=== PATIENT | female | born 1980 | race Caucasian/White ===

== ENCOUNTER 2016-06-05 01:41 | Inpatient (IN) | payer OTHER ==
[2016-06-02 10:39] LABS: Hematocrit 36 % (35-47); Hemoglobin 12.2 g/dl (12.0-16.0); Mean Corpuscular HGB Conc 34 g/dl (31-36); Mean Corpuscular Hemoglobin 30 pg (27-31); Mean Corpuscular Volume 88 fL (80-97); Mean Platelet Volume 11 um3 (7.4-10.4); Red Blood Count 4.11 10^6/ul (4.0-5.4); Red Cell Distribution Width 13 % (10.5-15); White Blood Count 8.3 10^3/ul (3.5-10.8)
[2016-06-05] MEDS ORDERED: Nalbuphine* 20 MG/ML 1 ML VIAL IV PRN ×2 (03:03→22:23)
[2016-06-05] MEDS ORDERED: Promethazine INJ(RESTRICTED)* 25 MG/ML 1 ML VIAL IV PRN (03:04)
[2016-06-05 04:10] LABS: Hematocrit 33 % (35-47); Hemoglobin 11.3 g/dl (12.0-16.0); Mean Corpuscular HGB Conc 34 g/dl (31-36); Mean Corpuscular Hemoglobin 30 pg (27-31); Mean Corpuscular Volume 87 fL (80-97); Mean Platelet Volume 10 um3 (7.4-10.4); Red Blood Count 3.81 10^6/ul (4.0-5.4); Red Cell Distribution Width 13 % (10.5-15); White Blood Count 10.8 10^3/ul (3.5-10.8)
[2016-06-05] MEDS ORDERED: OBEPIDURAL* 250 ML ONE (08:38)
[2016-06-05] MEDS ORDERED: HYDROmorphone* 1 MG/ML 1 ML SYR ONE ×3 (08:39→15:23)
[2016-06-05] MEDS ORDERED: fentaNYL* 50 MCG/ML 2 ML VIAL (100 MCG VIAL) ONE ×2 (08:39→15:23)
[2016-06-05] MEDS: Phenylephrine IV* 40 MCG/ML 10 ML SYRINGE IV PUSH PRN ×2 (09:09→09:24)
[2016-06-05] MEDS ORDERED: Sodium Citrate/Citric Acid* 15 ML UDC PO PRN (09:18)
[2016-06-05] MEDS ORDERED: EPHEDrine (Pressors)* 50 MG/ML VIAL IV PUSH PRN (09:18)
[2016-06-05] MEDS ORDERED: Famotidine TAB* 20 MG PO PRN (09:18)
[2016-06-05] MEDS ORDERED: OBEPIDURAL* 250 ML EPIDURAL SCH (10:00)
[2016-06-05] MEDS ORDERED: Oxytocin in LR* 20 UNITS/1,000 ML BAG IVPB SCH ×2 (12:00→23:45)
[2016-06-05] MEDS ORDERED: Bupivacaine 0.25% SDV* 30 ML ONE (12:24)
[2016-06-05] MEDS ORDERED: Lidocaine 1% MPF* 2 ML VIAL ONE (18:08)
[2016-06-05] MEDS ORDERED: ceFOXitin 2 GM IVPREMIX* 2 GM/50 ML BAG ONE (21:17)
[2016-06-05] MEDS ORDERED: ceFOXitin 2 GM IVPREMIX* 2 GM/50 ML BAG IVPB ONE (21:25)
[2016-06-05] MEDS ORDERED: Sodium Citrate/Citric Acid* 15 ML UDC PO ONE (21:26)
[2016-06-05] MEDS ORDERED: Morphine PF AMP (0.5MG/ML)* 5 MG/10 ML AMP ONE (21:37)
[2016-06-05] MEDS ORDERED: OXYTOCIN* 10 UNITS/ML 1 ML VIAL ONE (22:09)
[2016-06-05] MEDS ORDERED: Acetaminophen IV 1GM/100ML * 100 ML IVPB ONE (22:21)
[2016-06-05] MEDS ORDERED: oxyCODONE/Acetamin 5/325 MG* TAB PO PRN ×2 (22:21→22:23)
[2016-06-05] MEDS ORDERED: DiMENhydriNATE IV* 50 MG/ML VIAL IV PUSH PRN (22:21)
[2016-06-05] MEDS ORDERED: HYDROmorphone* 1 MG/ML 1 ML SYR IV PRN (22:21)
[2016-06-05] MEDS ORDERED: Ketorolac INJ* 30 MG/ML 1 ML VIAL ONE (22:22)
[2016-06-05] MEDS ORDERED: Ondansetron INJ* 2 MG/ML VIAL IV PRN (22:23)
[2016-06-05] MEDS ORDERED: Naloxone* 0.4 MG/ML 1 ML VIAL IV PRN (22:23)
[2016-06-05] MEDS ORDERED: Ondansetron INJ* 2 MG/ML VIAL ONE (22:34)
[2016-06-05] MEDS ORDERED: EPHEDrine (Pressors)* 50 MG/ML VIAL ONE (22:34)
[2016-06-05] MEDS ORDERED: Acetaminophen TAB* 325 MG PO PRN (23:29)
[2016-06-05] MEDS ORDERED: Dibucaine 1% 28.35 GM TUBE PR PRN (23:29)
[2016-06-05] MEDS ORDERED: Witch Hazel PAD* JAR TOPICAL PRN (23:29)
[2016-06-05] MEDS ORDERED: Glycerin ADULT SUPP PR PRN (23:29)
[2016-06-06] MEDS: Ibuprofen TAB* 600 MG PO SCH ×5 (06:32→19:11)
[2016-06-06] MEDS: oxyCODONE/Acetamin 5/325 MG* TAB PO PRN ×4 (06:33→18:12)
[2016-06-06 06:37] LABS: Hematocrit 27 % (35-47); Hemoglobin 8.8 g/dl (12.0-16.0); Mean Corpuscular HGB Conc 33 g/dl (31-36); Mean Corpuscular Hemoglobin 30 pg (27-31); Mean Corpuscular Volume 89 fL (80-97); Mean Platelet Volume 10 um3 (7.4-10.4); Red Cell Distribution Width 13 % (10.5-15); White Blood Count 13.7 10^3/ul (3.5-10.8)
[2016-06-06] MEDS: Ferrous Gluconate TAB* 324 MG TAB PO SCH ×2 (08:55→21:26)
[2016-06-06] MEDS: Docusate CAP* 100 MG PO SCH ×3 (08:57→21:25)
--- NOTE | 2016-06-06 10:43 | OP ---
AMENDED REPORT TO CORRECT DATE OF SURGERY - ESIGNED BEFORE ADJUSTMENT DATE OF OPERATION: 06/06/16 - ROOM #[id number] DATE OF : 80 SURGEON: Kelsi Fermin MD SOFTWARE TOOLS DEVELOPER: Dr. Fitzgerald. ANESTHESIOLOGIST: At the start of the surgery was Dr. Bains who placed the spinal, and then Dr. Avery took over. ANESTHESIA: Spinal. PRE-OP DIAGNOSIS: Full-term intrauterine , arrest of descent at fully dilated after pushing approximately 2 hours and 30 minutes. POST-OP DIAGNOSIS: Full-term intrauterine , arrest of descent at fully dilated after pushing approximately 2 hours and 30 minutes. OPERATIVE PROCEDURE: Primary low flap transverse section via Pfannenstiel. Uterus closed in 2 layers. ESTIMATED BLOOD LOSS: 700 cc. URINE OUTPUT: 300 cc clear urine intraoperatively. FINDINGS: Viable female infant in the vertex presentation. Apgars were 10 and 10. Weight was 8 pounds 13 ounces. Normal-appearing uterus, normal-appearing ovaries bilaterally. The right fallopian tube is surgically absent. The left fallopian tube appeared normal. COMPLICATIONS: None. COUNTS: Sponge, lap, and needle count were correct x2 and the patient was brought to recovery room, awake and in stable condition. The patient had sequential compression devices throughout the surgery and will have them in the recovery room and until ambulating regularly. DESCRIPTION OF PROCEDURE: The patient was brought to the operating room. A Bergman catheter had been placed under sterile conditions when she received labor epidural. Spinal anesthesia was provided by Dr. Bains. The spinal was tested and found to be adequate. The patient was prepped and draped in the usual sterile fashion in the dorsal supine position with a leftward tilt. Time-out was performed. Once again, the spinal was tested with Marshall clamps and found to be adequate. A Pfannenstiel skin incision was made with the scalpel and carried down to the underlying layer of fascia. The fascia was incised in the midline and the peritoneal incision was extended laterally using the Carranza scissors. The fascia was grasped with Annie clamps and the rectus muscle was dissected using sharp and blunt dissection. The rectus muscle was found to be in the midline. The peritoneum was identified, tented up and entered. The peritoneal incision was extended superiorly and inferiorly with good visualization of the bladder. The bladder blade was inserted. The vesicouterine peritoneum was identified and a bladder flap was created. The bladder blade was reinserted. A low flap transverse incision was made on the uterus to the level of the membranes and the uterine incision was extended bluntly. The infant was delivered from the vertex presentation. The labor nurse had to push the vertex vaginally. The infant was delivered atraumatically from the vertex presentation. The baby was vigorous. The cord was milked, then clamped and cut, and the infant was handed off to the waiting occupational therapy program director, Dr. Gutierres. The placenta was delivered. The uterus was exteriorized. The uterus was cleared of all clots and debris and the uterine incision was repaired using 0 Vicryl in a running lock fashion. A second layer of the same suture was used to imbricate and obtain excellent hemostasis. There was what appeared to be hematoma on the serosal surface near the right angle. This never expanded and remained stable in size. It was not tense. The ovaries and fallopian tubes were examined as noted in the findings. The right fallopian tube is surgically absent. There was a small 1 cm fibroid on the posterior surface of the fundus. The uterus was returned to the pelvis. The gutters were cleared of all clots and debris and once again, the uterine incision was examined and found to be hemostatic. The peritoneum was closed using 3-0 Vicryl. The subfascial layer was examined and found to be hemostatic. The fascia was closed using 0 Vicryl. The subcutaneous tissue was irrigated. Any bleeders were cauterized with the Bovie. Three interrupted sutures of 3-0 Vicryl were placed in the subcu to help close the space. The skin was closed in a subcuticular fashion with 4-0 Monocryl. Steri-Strips were applied. A pressure dressing was applied, and the patient was brought to recovery room, awake and in stable condition, Bergman catheter draining clear urine, sequential compression devices bilaterally. [id number]/[facility] #: [id number] BREANNE
[2016-06-06] MEDS: Simethicone CHEW TAB* 80 MG PO SCH ×3 (12:49→21:26)
[2016-06-07] MEDS: oxyCODONE/Acetamin 5/325 MG* TAB PO PRN ×6 (00:24→21:53)
[2016-06-07] MEDS: Ibuprofen TAB* 600 MG PO PRN ×4 (01:37→21:53)
[2016-06-07] MEDS: Simethicone CHEW TAB* 80 MG PO SCH ×4 (09:18→20:38)
[2016-06-07] MEDS: Docusate CAP* 100 MG PO SCH ×3 (09:18→20:39)
[2016-06-07] MEDS: Ferrous Gluconate TAB* 324 MG TAB PO SCH ×2 (09:18→20:39)
--- NOTE | 2016-06-07 15:39 | PTEDU ---
Patient Name: BECKIE BILL BECKIE BILL selected video: Never Ever Shake a Baby to view on 06/07/2016 at 3:38:22 PM from [id number]
--- NOTE | 2016-06-07 15:48 | PTEDU ---
Patient Name: BECKIE BILL BECKIE BILL selected video: BBOB: Bonding Through Infant Massage to view on 06/07/2016 at 3:47: 49 PM [id number]
[2016-06-07] MEDS: Ibuprofen TAB* 600 MG PO SCH (19:33)
[2016-06-08] MEDS: oxyCODONE/Acetamin 5/325 MG* TAB PO PRN ×2 (03:39→07:48)
[2016-06-08] MEDS: Ibuprofen TAB* 600 MG PO PRN (06:29)
[2016-06-08] MEDS: Simethicone CHEW TAB* 80 MG PO SCH (07:45)
[2016-06-08] MEDS: Docusate CAP* 100 MG PO SCH (07:48)
[2016-06-08] MEDS: Ferrous Gluconate TAB* 324 MG TAB PO SCH (07:48)
[2016-06-08 07:49] VITALS: BP 104/60
== END 2016-06-08 10:10 | disposition home or self-care (01) | DRG 766 ==
LOC: MCHOBOUT 01:41 → MCHOB 08:14
PROVIDERS: ADMIT Obstetrics & Gynecology; ATTEND Obstetrics & Gynecology
PROC: 10907ZC Drainage of Amniotic Fluid, Therapeutic from Products of Conception, Via Natural or Artificial Opening (ICD-10-PCS; 2016-06-05)
PROC: 10D00Z1 Extraction of Products of Conception, Low, Open Approach (ICD-10-PCS; principal; 2016-06-05 21:41)
DX: O62.1 Secondary uterine inertia (principal); D25.9 Leiomyoma of uterus, unspecified; O48.0 Post-term pregnancy; O34.13 Maternal care for benign tumor of corpus uteri, third trimester; O09.513 Supervision of elderly primigravida, third trimester; O90.81 Anemia of the puerperium; D64.9 Anemia, unspecified; Z3A.40 40 weeks gestation of pregnancy; Z37.0 Single live birth
CPT/HCPCS: 36415; 85025; 85027; 86850; 86900; 86901; A9270-GY; J0694; J1170; J1885; J2300; J2405; J2550; J2590; J3010

== ENCOUNTER 2018-04-26 07:25 | Day surgery (SDC) | payer OTHER ==
[~2018-04-26 07:25] MED LIST: Buffered Lidocaine 1% SYRIN* 1 ML/SYRINGE INTRADERM ONE; Famotidine IV* 10 MG/ML 2 ML (20 mg) IV ONE; Lactated Ringers 1000 ML Bag* 1,000 ML IV SCH
[2018-04-26] MEDS ORDERED: Famotidine IV* 10 MG/ML 2 ML (20 mg) ONE (07:55)
[2018-04-26] MEDS ORDERED: ceFAZolin 2 GM PREMIX in ORs 2 GM/50 ML BAG IVPB ONE (07:55)
[2018-04-26] MEDS ORDERED: Buffered Lidocaine 1% SYRIN* 1 ML/SYRINGE INTRADERM ONE (07:56)
[2018-04-26] MEDS ORDERED: Ondansetron INJ* 2 MG/ML VIAL ONE (08:13)
[2018-04-26] MEDS ORDERED: fentaNYL* 50 MCG/ML 2 ML VIAL (100 MCG VIAL) ONE (08:13)
[2018-04-26] MEDS ORDERED: Lidocaine 2% PF * 5 ML VIAL ONE (08:13)
[2018-04-26] MEDS ORDERED: KETAMINE HCL* 50 MG/ML 10 ML VIAL ONE (08:13)
[2018-04-26] MEDS ORDERED: Ketorolac INJ* 30 MG/ML 1 ML VIAL ONE (08:13)
[2018-04-26] MEDS ORDERED: Dexamethasone IV* 4 MG/ML 1 ML (4 MG) ONE (08:13)
[2018-04-26] MEDS ORDERED: Propofol* 10 MG/ML 20 ML BTL ONE ×3 (08:13→10:07)
[2018-04-26] MEDS ORDERED: Midazolam* 1 MG/ML 10 ML VIAL (10 MG) ONE (08:14)
[2018-04-26] MEDS ORDERED: Bupivacaine 0.5%* 50 ML VIAL ONE (09:20)
[2018-04-26] MEDS ORDERED: Lidocaine 1% INJ* 10 MG/ML 30 ML SDV ONE (09:20)
[2018-04-26] MEDS ORDERED: oxyCODONE/Acetamin 5/325 MG* TAB PO PRN (09:52)
[2018-04-26] MEDS ORDERED: Ondansetron INJ* 2 MG/ML VIAL IV PRN (09:52)
[2018-04-26] MEDS ORDERED: fentaNYL* 50 MCG/ML 2 ML VIAL (100 MCG VIAL) IV PRN (09:52)
[2018-04-26] MEDS ORDERED: Naloxone* 0.4 MG/ML 1 ML VIAL IV PRN (09:52)
[2018-04-26 12:12] VITALS: BP 113/71
--- NOTE | 2018-04-26 13:15 | OP ---
DATE OF OPERATION: 04/26/18 - [facility] DATE OF : 80 SURGEON: Kary Ferguson MD. PACKER SAUSAGE AND WIENER: Mitzy Pinto MD. ANESTHESIOLOGIST: Luis Andrews MD. ANESTHESIA: MAC. PRE-OP DIAGNOSIS: Right breast mass. POST-OP DIAGNOSIS: Right breast mass. OPERATIVE PROCEDURE: Right breast lumpectomy. INDICATIONS FOR PROCEDURE: Ms. 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 She gave informed consent for a right breast lumpectomy and she understood the risks, benefits, and alternatives of the procedure and she wished to proceed. SPECIMEN: Right breast mass. DESCRIPTION OF PROCEDURE: The patient was brought back to the operating room and placed on the operating table in the supine position. Venodyne boots were placed on the bilateral lower extremities for DVT prophylaxis. Antibiotics were administered prior to incision. The patient was undergoing a MAC anesthesia and the right breast was prepped and draped in normal sterile fashion. Prior to beginning the procedure, a time-out was performed verifying the patient's name, MR number, the laterality of the procedure which was the right side, and the procedure to be performed. The right breast mass was palpable at approximately 12 o'clock approximately 2 to 3 cm from the nipple. Local anesthesia with mixture of 1% lidocaine and 0.5% Marcaine was administered to the area where the incision was to be made. A curvilinear incision was made over the palpable mass and the skin was divided down to the subcutaneous tissue. A cone of breast tissue was then removed using electrocautery, which contained the mass which appeared to be encapsulated and discrete. It was removed in its entirety. Next, the specimen was carried off the table and sent to Pathology. The breast cavity was examined. Hemostasis was obtained after meticulous inspection. 1% lidocaine was used to infuse into the breast cavity for additional local anesthesia and then the subdermal layer was closed using interrupted 3-0 Vicryl sutures and the skin was closed using interrupted 4-0 Monocryl suture. Sterile dressing was placed and then the patient was woken up and she was taken to the PACU in stable condition. At the end of the case, all counts were correct and I was present during the entirety of the case. [id number]/[facility] #: [id number] BREANNE
== END 2018-04-26 12:00 | disposition home or self-care (01) ==
LOC: OR 07:25
PROVIDERS: ATTEND Surgery
DX: N63.10 Unspecified lump in the right breast, unspecified quadrant (principal)
CPT/HCPCS: 81025; 88307; J0690; J1100; J1885; J2250; J2405; J2704; J3010

== ENCOUNTER 2020-01-21 07:18 | Inpatient (IN) ==
[~2020-01-21 07:18] MED LIST changes: -Buffered Lidocaine 1% SYRIN* 1 ML/SYRINGE INTRADERM ONE; -Famotidine IV* 10 MG/ML 2 ML (20 mg) IV ONE; -Lactated Ringers 1000 ML Bag* 1,000 ML IV SCH; +ceFOXitin 2 GM IVPREMIX 2 GM/50 ML BAG IVPB ONE
[2020-01-21] MEDS ORDERED: Morphine PF AMP (0.5MG/ML) 5 MG/10 ML AMP ONE (08:28)
[2020-01-21] MEDS ORDERED: EPHEDrine (Pressors) 50 MG/ML VIAL ONE (08:28)
[2020-01-21] MEDS ORDERED: fentaNYL 100 mcg/2 ml 50 MCG/ML VIAL ONE (08:28)
[2020-01-21] MEDS ORDERED: Phenylephrine 40 mcg/mL 10mL (400mcg) SYRINGE ONE ×2 (08:56→08:59)
[2020-01-21] MEDS ORDERED: Ondansetron 4 mg VIAL 2 MG/ML 2 ml VIAL ONE (08:57)
[2020-01-21 09:04] LABS: Urine Benzodiazepine Screen None Detected (None Detect); Urine Cannabinoids Screen None Detected (None Detect); Urine Opiates Screen None Detected (None Detect)
[2020-01-21] MEDS ORDERED: Oxytocin 10 UNITS/ML 1 ML VIAL ONE (09:08)
[2020-01-21] MEDS ORDERED: oxyCODONE/Acetamin 5/325 mg TAB PO PRN (09:09)
[2020-01-21] MEDS ORDERED: Naloxone 0.4 mg VIAL 0.4 mg/ml 1 ml VIAL IV PRN ×2 (09:09→09:10)
[2020-01-21] MEDS ORDERED: Ondansetron 4 mg VIAL 2 MG/ML 2 ml VIAL IV PRN (09:09)
[2020-01-21] MEDS ORDERED: Acetaminophen IV 1 GM/100ML 100 ML IVPB ONE (09:52)
[2020-01-21] MEDS ORDERED: Glycerin ADULT 2.4 gm SUPP PR PRN (10:02)
[2020-01-21] MEDS ORDERED: Witch Hazel PAD JAR TOPICAL PRN (10:02)
[2020-01-21] MEDS ORDERED: Dibucaine 1% OINT 28.35 GM TUBE PR PRN (10:02)
[2020-01-21] MEDS ORDERED: Lactated Ringers 1000 ml BAG 1,000 ML IV SCH (11:00)
[2020-01-22 06:17] LABS: ABS Eosinophils 0.1 10^3/ul (0-0.6); ABS Monocytes 0.5 10^3/ul (0-0.8); ABS Neutrophils 6.5 10^3/ul (1.5-7.7); Hematocrit 30 % (35-47); Hemoglobin 10.4 g/dL (12.0-16.0); Lymphocyte % 12.6 %; Mean Corpuscular HGB Conc 35 g/dL (31-36); Mean Corpuscular Hemoglobin 30 pg (27-31); Mean Corpuscular Volume 88 fL (80-97); Mean Platelet Volume 9.4 fL (7.4-10.4); Platelet Count 138 10^3/uL (150-450); Red Blood Count 3.43 10^6 /uL (3.70-4.87); Red Cell Distribution Width 13 % (10-15); White Blood Count 8.1 10^3/uL (3.5-10.8)
[2020-01-24 07:53] VITALS: BP 114/72
[2020-01-24] MEDS ORDERED: Scopolamine PATCH Remove NOTE PATCH OFF SCH (15:00)
== END 2020-01-24 11:48 | disposition home or self-care (01) | DRG 785 ==
LOC: MCHOB 07:18
PROVIDERS: ADMIT Obstetrics & Gynecology; ATTEND Obstetrics & Gynecology